=== PATIENT | male | born 1970 | race Caucasian/White ===

== ENCOUNTER 2023-10-03 09:06 | Emergency (ER) | payer BC | END 2023-10-03 10:50 | disposition home or self-care (01) | LOC: CSHERS 09:06 | DX: M79.89 Other specified soft tissue disorders (principal) ==

== ENCOUNTER 2025-03-22 09:04 | Emergency (ER) | payer BC ==
[2025-03-22] MEDS ORDERED: HYDROcodone/Acetaminophen 5/325 mg Tablet ONE (09:34)
[2025-03-22] MEDS ORDERED: Orphenadrine Citrate 60 MG/2 ML VIAL ONE (09:35)
[2025-03-22] MEDS ORDERED: Ketorolac Tromethamine 30 MG (1 mL) VIAL ONE (09:35)
== END 2025-03-22 11:11 | disposition home or self-care (01) ==
LOC: CSHERS 09:04
DX: S39.012A Strain of muscle, fascia and tendon of lower back, initial encounter (principal); X58.XXXA Exposure to other specified factors, initial encounter
CPT/HCPCS: 96372; 99283; J1885; J2360; J2919